=== PATIENT | male | born 1980 | race Caucasian/White ===

== ENCOUNTER 2017-04-07 20:12 | Emergency (ER) | payer SELFPAY ==
[~2017-04-07] VITALS: Ht 185.4 cm; Wt 90.7 kg
[2017-04-07] MEDS ORDERED: CYCL5TAB PO (21:06)
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
[2017-04-07 22:25] VITALS: BP 128/83
== END 2017-04-07 22:25 | disposition home or self-care (01) ==
LOC: ER 20:15
DX: M54.5 Low back pain (principal); M54.6 Pain in thoracic spine; R40.2142 Coma scale, eyes open, spontaneous, at arrival to emergency department; R40.2252 Coma scale, best verbal response, oriented, at arrival to emergency department; R40.2362 Coma scale, best motor response, obeys commands, at arrival to emergency department; V43.51XA Car driver injured in collision with sport utility vehicle in traffic accident, initial encounter
CPT/HCPCS: 70450; 72100; 72125